=== PATIENT | female | born 1985 | race Caucasian/White ===

== ENCOUNTER 2021-10-07 07:23 | Emergency (ER) | payer BC ==
[~2021-10-07] VITALS: Ht 162.6 cm; Wt 74.8 kg
[2021-10-07] MEDS ORDERED: HYDROCODONE/APAP 5-325MG TABLET PO ONE (07:45)
[2021-10-07] MEDS ORDERED: KETOROLAC TROMETHAMINE 15 MG INJ IM ONE (07:45)
[2021-10-07] MEDS ORDERED: CYCLOBENZAPRINE HCL 10 MG TABLET PO ONE (07:45)
--- NOTE | 2021-10-07 07:48 | NUR ---
@[facility], medical screening exam in progress
[2021-10-07] MEDS ORDERED: KETOROLAC TROMETHAMINE 15 MG INJ ONE (07:49)
[2021-10-07] MEDS ORDERED: HYDROCODONE/APAP 5-325MG TABLET ONE (07:50)
[2021-10-07] MEDS ORDERED: CYCLOBENZAPRINE HCL 10 MG TABLET ONE (07:50)
[2021-10-07] MEDS ORDERED: NAPR-1009 PO (08:23)
[2021-10-07] MEDS ORDERED: DEXAMETHASONE SOD PHOSPHATE 10 MG INJ ONE (08:23)
[2021-10-07] MEDS ORDERED: METH4TAB3 PO (08:23)
[2021-10-07] MEDS ORDERED: DEXAMETHASONE SOD PHOSPHATE 4 MG INJ IM ONE (08:30)
--- NOTE | 2021-10-07 08:37 | NUR ---
Patient discharged to home in stable condition with brisk steady gait. Written and verbal after care instructions given. Patient verbalizes understanding and compliance of instructions. Stressed follow up with primary doctor and pain management doctor or return to ER for worsening s/s.
[2021-10-07 08:43] VITALS: BP 110/69
== END 2021-10-07 08:43 | disposition home or self-care (01) ==
LOC: ER 07:23
DX: M51.17 Intervertebral disc disorders with radiculopathy, lumbosacral region (principal); G40.909 Epilepsy, unspecified, not intractable, without status epilepticus
CPT/HCPCS: 96372 ×2; 99283; J1100; J1885; A4663